=== PATIENT | male | born 1935 | race Caucasian/White ===

== ENCOUNTER 2016-08-20 16:20 | Outpatient (CLI) | payer OTHER, MEDICAID ==
[2015-10-11 10:17] VITALS: BP 167/84
[2016-08-20 16:55] LABS: EOSINOPHILS % 3.5 % (0.0-6.8); LYMPHOCYTES # 2.4 # k/uL (0.6-4.0); MEAN CORPUSCULAR HEMOGLOBIN 31.3 pg (28.0-34.0); MONOCYTES # 0.4 # k/uL (0.0-0.9); MONOCYTES % 5.1 % (0.0-11.0)
[2016-08-20 17:31] LABS: eGFR (African) > 60; eGFR (Non-African) > 60
== END 2016-08-20 16:21 ==
LOC: LAB 16:20
PROVIDERS: ATTEND Family Medicine
DX: D50.0 Iron deficiency anemia secondary to blood loss (chronic) (principal); I10 Essential (primary) hypertension; R63.5 Abnormal weight gain; R41.3 Other amnesia
CPT/HCPCS: 36415; 80053; 82607; 82746; 84443; 85025

== ENCOUNTER 2017-02-16 15:11 | Outpatient (CLI) | payer OTHER ==
[2015-10-11 10:17] VITALS: BP 167/84
--- NOTE | 2017-02-16 21:17 | Diagnostic Imaging Report ---
AXEL JACOBO [facility] [address] [facility] [address] [place], [place]. [address] Report Submission Date: Feb 16, 2017 3:46:33 PM CDT Patient Study Name: ANGE RIVAS Date: Feb 16, 2017 3:14:25 PM CDT Modality Type: CR Gender: M Description: CHEST : 37 Institution: [facility] Physician: AXEL JACOBO Examination: PA and lateral chest. History: Evaluate lung mancilla. Comparison exam: None available. Findings: PA lateral chest demonstrate a normal cardiac silhouette. Tortuosity of thoracic aorta with vascular calcifications involving the aortic arch. Sternotomy wires. Parenchymal haziness involving the apical lung mancilla, right greater than left. Remaining lung mancilla are without infiltrate. Mid left pulmonary granuloma. Left hilar calcified granuloma. No effusion. No blunting of the costophrenic margins. Osseous structures are appropriate for age. Impression: Apical parenchymal scarring: correlation with older studies recommended. No effusion. Electronically signed on Feb 16, 2017 3:46:33 PM CDT by: Ventura Reed [facility] CENTERBrandie
== END 2017-02-16 15:12 ==
LOC: RAD 15:11
PROVIDERS: ATTEND Family Medicine
DX: R63.4 Abnormal weight loss (principal)
CPT/HCPCS: 71020

== ENCOUNTER 2017-08-05 12:26 | Outpatient (CLI) | payer OTHER ==
[2015-10-11 10:17] VITALS: BP 167/84
--- NOTE | 2017-08-05 19:26 | Diagnostic Imaging Report ---
PROMISE NEWELL [facility] [address] 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 Cough. FINDINGS: Examination of the chest in PA and lateral views with comparison to examination of 02/16/2017 demonstrates the lungs to be hyperinflated but clear. There are postoperative changes with multiple sternotomy wires. Small calcified nodes are seen in the left hilum. Bony thorax appears intact. IMPRESSION: Postoperative chest. Aortic atherosclerosis. Hyperinflation consistent with emphysema. Electronically signed on Aug 05, 2017 1:51:42 PM RETAIL DEPARTMENT RESET by: Topher CHAPARRO
== END 2017-08-05 12:28 ==
LOC: RAD 12:26
PROVIDERS: ATTEND Family Medicine
DX: R07.89 Other chest pain (principal); W19.XXXA Unspecified fall, initial encounter
CPT/HCPCS: 71020

== ENCOUNTER 2017-08-23 09:50 | Outpatient (CLI) | payer OTHER ==
[2015-10-11 10:17] VITALS: BP 167/84
--- NOTE | 2017-08-23 12:12 | Diagnostic Imaging Report ---
AXEL JACOBO [facility] [address] [facility] [address] [place], [place]. 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 Findings: Ventricles and sulci are prominent. Cerebrocerebellar parenchyma demonstrates periventricular low attenuation consistent with small vessel disease. 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 No evidence for parenchymal hemorrhage. No evidence for mass or mass effect. No midline shift. No extra axial fluid collections. Partial visualization of the paranasal sinuses , mastoid air cells, orbits, skull and scalp without gross irregularity. Impression: Age related changes. No acute parenchymal process. No hemorrhage. If symptoms persist, consider obtaining MRI brain to further evaluate. Electronically signed on Aug 23, 2017 10:33:05 AM VIVIEN by: Ventura CHAPARRO
== END 2017-08-23 09:52 ==
LOC: RAD 09:50
PROVIDERS: ATTEND Family Medicine
DX: S09.8XXA Other specified injuries of head, initial encounter (principal); Y99.9 Unspecified external cause status; R51 Headache
CPT/HCPCS: 70450

== ENCOUNTER 2018-01-14 19:58 | Emergency (ER) | payer OTHER ==
--- NOTE | 2018-01-14 20:18 | ED Physician Documentation ---
Animal Bite - HISTORIAN Historian: patient - HPI Stated Complaint: cat scratch Chief Complaint: General Adult Onset: just prior to arrival Where: home Animal: cat Appearance of Animal: appeared well Animal's Immunization Status: UTD Observation/ Capture of Animal: animal is known Context of Attack: other (he was jumping up on his chest (the cat) and his claw got his arm. he had some bleeding. He does take an asprin a day . No pain. He has no concerns about the animal it is his cat ) Severity of Injury: scratched Location of Injury: L upper extremity Associated Symptoms: none Further Comments: no - ROS CONST: none - PAST HX Past History: cardiac disease Immunizations: UTD Allergies/Adverse Reactions: Allergies Allergy/AdvReac Type Severity Reaction Status Date / Time No Known Allergies Allergy Verified 01/14/18 20:03 - SOCIAL HX Smoking History: non-smoker Alcohol Use: none Drug Use: none - FAMILY HX Family History: none - VITAL SIGNS Vital Signs: Vital Signs Temp Pulse Resp BP Pulse Ox 167/84 10/11/15 10:00 - REVIEWED ASSESSMENTS Nursing Assessment Reviewed: Yes Vitals Reviewed: Yes Animal Bite Physical Exam - Physical Exam General Appearance: no acute distress, alert Neuro/Vascular/Tendon: no vascular compromise, oriented x3, sensation nml, CN's nml as tested, ROM nml Neck: uninjured, nml inspection Resp/CVS: chest non-tender, breath sounds nml, heart sounds nml, no resp. distress, lungs clear, reg. rate & rhythm Abdomen: uninjured,nml inspection Back: uninjured, nml inspection Extremities: other (small puncture wound on left upper arm with a small hematoma ) Discharge Clincal Impression: Puncture wound - injury Referrals: Darius Vasquez MD [Primary Care Provider] - 2 Days Additional Instructions: 1. Keep area clean and dry 2. Keep ice to the area 3. See PCP for follow up in 2-4 days for any further concerns 4. Return to ER for issues with pain, continued bleeding or other concerns Condition: Stable Disposition: 01 HOME, SELF-CARE Decision to Admit: NO Date of Decison to Admit: 01/14/18 Decision Time: 20:29
[2018-01-14 20:47] VITALS: BP 162/94
[2018-01-14] MEDS ORDERED: NEOMYCIN/BACITRACIN/POLYMYXINB 1 EACH OINT.PACK TP ONE (20:48)
== END 2018-01-14 20:45 | disposition home or self-care (01) ==
LOC: ED 19:58
DX: S41.132A Puncture wound without foreign body of left upper arm, initial encounter (principal); W55.01XA Bitten by cat, initial encounter; Y92.9 Unspecified place or not applicable; Y93.9 Activity, unspecified; Y99.9 Unspecified external cause status